=== PATIENT | male | born 1965 | race African-American/Black ===

== ENCOUNTER 2024-07-09 15:32 | Emergency (ER) | payer BC ==
[2024-07-09 16:05] LABS: #Basophils 0.07 10x3/uL (0.0-0.2); #Monocytes 1.34 10x3/uL (0.0-1.1); #Neutrophils 7.45 10x3/uL (1.5-8.4); %Basophils 0.7 % (0.0-2.0); %Eosinophils 1.9 % (0.0-6.0); %Lymphocytes 14.8 % (18.0-47.0); %Monocytes 12.6 % (0.0-10.0); %Neutrophils 69.7 % (40.0-75.0); Hematocrit 37.2 % (38.8-50.0); Hemoglobin 12.5 g/dL (13.5-17.5); Mean Corpuscular HGB CONC 33.6 g/dL (32.0-36.0); Mean Corpuscular Hemoglobin 28.7 pg (27.0-33.0); Mean Corpuscular Volume 85.3 fL (81.2-95.1); Mean Platelet Volume 9.7 fL (7.4-10.4); Platelet Count 346 10x3/uL (150-450); RBC Distribution Width 15.1 % (11.5-14.5); Red Blood Cell (RBC) Count 4.36 10x6/uL (4.32-5.72); White Blood Cell (WBC) Count 10.67 10x3/uL (3.5-10.5)
[2024-07-09 16:15] LABS: PTT 30.8 sec (22.0-33.0); Prothrombin Time 11.2 sec (9.5-12.1)
[2024-07-09 16:18] LABS: ALT (SGPT) 11 U/L (8-55); AST (SGOT) 19 U/L (5-34); Albumin 3.8 g/dL (3.4-4.8); Alkaline Phosphatase 73 U/L (40-110); Anion Gap 16 mmol/L (10-20); BUN (Urea Nitrogen) 8 mg/dL (8.4-25.7); Bilirubin, Total 0.7 mg/dL (0.2-1.2); Calc. Creatinine Clearance 0 mL/min (70-130); Calcium 9.6 mg/dL (7.8-10.44); Carbon Dioxide 26 mmol/L (23-31); Chloride 100 mmol/L (98-107); Estimated GFR 100; Globulin 4.2 g/dL (2.4-3.5); Glucose 80 mg/dL (80-115); Magnesium 2.1 mg/dL (1.6-2.6); Potassium 3.5 mmol/L (3.5-5.1); Sodium 138 mmol/L (136-145)
[2024-07-09] MEDS ORDERED: Boostrix 0.5 ML (Tdap) VIAL (>/=7 yrs of age) ONE (16:21)
[2024-07-09 16:24] LABS: Troponin I 0.011 ng/mL (< 0.028)
[2024-07-09] MEDS ORDERED: HUMAN PROTHROMBIN CMP IV SCH ×3 (16:30→17:00)
[2024-07-09] MEDS ORDERED: ADMIXTURE FEE IV SCH ×3 (16:30→17:00)
== END 2024-07-09 18:59 | disposition short-term general hospital (02) ==
LOC: CSHERS 15:32
DX: R55 Syncope and collapse (principal); S06.5XAA Traumatic subdural hemorrhage with loss of consciousness status unknown, initial encounter; I10 Essential (primary) hypertension; F17.210 Nicotine dependence, cigarettes, uncomplicated; I49.3 Ventricular premature depolarization; Z95.0 Presence of cardiac pacemaker; Z79.82 Long term (current) use of aspirin; Z79.01 Long term (current) use of anticoagulants; W19.XXXA Unspecified fall, initial encounter
CPT/HCPCS: 70450; 80053; 83735; 83880; 84484; 85025; 85610; 85730; 90715; 93005; J7168